=== PATIENT | female | born 1955 ===

== ENCOUNTER 2017-12-07 09:24 | Emergency (ER) | payer BC ==
[~2017-12-07] VITALS: Ht 160 cm; Wt 52.2 kg
[~2017-12-07 09:24] MED LIST: MECL25 PO
[2017-12-07 10:01] LABS: BASOPHILS ABSOLUTE AUTO 0.04 K/mm3 (0.00-0.23); BASOPHILS PERCENT AUTO 1 % (0-2); EOSINOPHILS ABSOLUTE AUTO 0.27 K/mm3 (0.00-0.68); EOSINOPHILS PERCENT AUTO 4 % (0-6); Hematocrit 36.6 % (33.0-51.0); IMMATURE GRAN ABSOLUTE AUTO 0.03 K/mm3 (0.00-0.10); IMMATURE GRAN PERCENT AUTO 0 % (0-1); LYMPHOCYTES ABSOLUTE AUTO 3.45 K/mm3 (0.84-5.20); LYMPHOCYTES PERCENT AUTO 50 % (21-46); MONOCYTES ABSOLUTE AUTO 0.45 K/mm3 (0.16-1.47); MONOCYTES PERCENT AUTO 7 % (4-13); Mean Corpuscular HGB Conc 35.5 g/dL (31.5-36.5); Mean Corpuscular Volume 87 fL (80-100); Mean Platelet Volume 9.1 fL (9.1-12.4); NEUTROPHILS ABSOLUTE AUTO 2.66 K/mm3 (1.96-9.15); NEUTROPHILS PERCENT AUTO 39 % (41-73); Platelet Count 312 K/mm3 (150-400); RDW Coefficient Variation 12.3 % (11.7-14.2); RDW Standard Deviation 39.2 fL (35.1-46.3)
[2017-12-07 10:39] LABS: Alanine Aminotransfer (ALT/SGP 42 U/L (12-78); Albumin, Blood 3.8 g/dL (3.4-5.0); Albumin/Globulin Ratio 1.1 (0.8-1.8); Alk Phos 55 U/L (50-136); Anion Gap 11 mmol/L (6-16); Aspartate Aminotrans (AST/SGOT 26 U/L (12-37); Bilirubin, Total 0.7 mg/dL (0.1-1.0); Blood Urea Nitrogen 11 mg/dL (8-24); Bun/Creatinine Ratio 21.8 (12.0-20.0); CO2, Blood 22 mmol/L (21-32); Calcium, Blood 8.8 mg/dL (8.5-10.1); Chloride, Blood 105 mmol/L (98-108); Creatinine, Blood 0.51 mg/dL (0.40-1.00); Globulin, Blood 3.6 g/dL (2.2-4.0); Glomerular Filtration Rate >60 (60-); Glucose, Blood 165 mg/dL (70-99); Potassium, Blood 3.1 mmol/L (3.5-5.5); Sodium, Blood 138 mmol/L (136-145); Total Protein, Blood 7.4 g/dL (6.4-8.2)
== END 2017-12-07 11:15 | disposition home or self-care (01) ==
LOC: ER 09:24
PROVIDERS: Physician Assistant
DX: F41.9 Anxiety disorder, unspecified (principal); R42 Dizziness and giddiness; Z85.3 Personal history of malignant neoplasm of breast
CPT/HCPCS: 36415; 80053; 83735; 85025; 93005; 93010; 96361; 96374; 99283; J2060; J7030

== ENCOUNTER 2019-04-04 08:51 | Day surgery (SDC) | payer BC ==
[~2019-04-04] VITALS: Ht 160 cm; Wt 54.5 kg
[~2019-04-04 08:51] MED LIST changes: +EC-Naprosyn375 MG PO
--- NOTE | 2019-04-04 09:58 | NUR ---
04/04/19 0958 Galileo Wahl CALL LIGHT WITHIN REACH. FAMILY AT BEDSIDE. PT AWARE OF OR DELAY. PT RESTING
--- NOTE | 2019-04-04 12:34 | NUR ---
04/04/19 [address] PEDROZA THAT PTS HR IS 43-50 IN SDU, BP IS 149/76. NO ORDERS AT THIS TIME PATIENTS BP IS WNL AND HER HR IN PREOP WAS 56. WILL CONTINUE TO MONITOR. PT WAS MEDICATED FOR PAIN (SEE VS) SHE STATES THAT PAIN IS NOW 3/10 AND THAT HER LEG HURTS UP HIGH, I EXPLAINED THAT SHE HAD A TOURNIQUET ON THAT LEG. I CHECKED THE TOURNIQUET SIGHT AND IS THE SKIN IS RED AND THERE IS AN AREA ABOUT 3 INCHES LONG THAT IS ABRAIDED.
== END 2019-04-04 14:00 | disposition home or self-care (01) ==
LOC: ORSCSDS 08:51
PROVIDERS: Orthopaedic Surgery
PROC: 0SBC4ZZ Excision of Right Knee Joint, Percutaneous Endoscopic Approach (ICD-10-PCS; principal; 2019-04-04 10:00)
DX: S83.281A Other tear of lateral meniscus, current injury, right knee, initial encounter (principal); M22.41 Chondromalacia patellae, right knee
CPT/HCPCS: J0171; J0690; J2250; J2704; J2710; J3010; J7120

== ENCOUNTER 2022-09-26 10:03 | Day surgery (SDC) | payer OTHER ==
[~2022-09-26] VITALS: Ht 160 cm; Wt 55.3 kg
== END 2022-09-26 12:25 | disposition home or self-care (01) ==
LOC: ORSCSDS 10:03
PROVIDERS: Internal Medicine Gastroenterology
PROC: 0DBN8ZX Excision of Sigmoid Colon, Via Natural or Artificial Opening Endoscopic, Diagnostic (ICD-10-PCS; principal; 2022-09-26 11:15)
DX: Z12.11 Encounter for screening for malignant neoplasm of colon (principal); D12.5 Benign neoplasm of sigmoid colon; Z86.010 Personal history of colon polyps
CPT/HCPCS: 88305; J2704; J7120

== ENCOUNTER 2025-03-05 20:31 | Emergency (ER) | payer OTHER ==
[~2025-03-05] VITALS: Ht 162.6 cm; Wt 63.5 kg
[2025-03-05 21:16] VITALS: BP 165/91
== END 2025-03-05 22:48 | disposition home or self-care (01) ==
LOC: ER 20:31
DX: S40.261A Insect bite (nonvenomous) of right shoulder, initial encounter (principal); W57.XXXA Bitten or stung by nonvenomous insect and other nonvenomous arthropods, initial encounter; Z79.899 Other long term (current) drug therapy; Z88.2 Allergy status to sulfonamides; Z88.6 Allergy status to analgesic agent; Z88.8 Allergy status to other drugs, medicaments and biological substances
CPT/HCPCS: 10120; 99282-25